=== PATIENT | female | born 2000 | race Caucasian/White ===

== ENCOUNTER 2019-03-05 06:06 | Emergency (ER) | payer OTHER, SELFPAY ==
[~2019-03-05] VITALS: Ht 182.9 cm; Wt 56.1 kg
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
--- NOTE | 2019-03-05 06:52 | NUR ---
EXAMINED BY ERP PLAN IS TO TRANSFER TO [facility]. PATIENT AND PATIENT'S MOTHER DECLINED TRANSFER VIA AMBULANCE DUE TO FINANCIAL REASON. MOTHER WILL TAKE PATIENT TO [facility] VIA PRIVATE CAR. C- COLLAR APPLIED PER [facility] VERBAL ORDER. [facility] INFORMED.
[2019-03-05 06:59] VITALS: BP 128/65
== END 2019-03-05 07:07 | disposition left against medical advice (07) ==
LOC: ED 07:01
DX: S01.01XA Laceration without foreign body of scalp, initial encounter (principal); S50.02XA Contusion of left elbow, initial encounter; S46.991A Other injury of unspecified muscle, fascia and tendon at shoulder and upper arm level, right arm, initial encounter; F17.200 Nicotine dependence, unspecified, uncomplicated; V49.59XA Passenger injured in collision with other motor vehicles in traffic accident, initial encounter; Y93.89 Activity, other specified; Y92.89 Other specified places as the place of occurrence of the external cause; Y99.8 Other external cause status
CPT/HCPCS: 99283